=== PATIENT | male | born 1945 | race Caucasian/White ===

== ENCOUNTER 2016-09-28 20:25 | Emergency (ER) | payer BC ==
--- NOTE | 2016-09-28 21:30 | RAD ---
INDICATION: Intracranial injury. Anticoagulated. COMPARISON: None TECHNIQUE: Noncontrast axial source images were acquired from the skull base to the vertex. FINDINGS: Ventricles/sulci: There is mild age-related cortical atrophy with compensatory dilatation of the CSF spaces. Brain parenchyma: There is no focal parenchymal finding, evidence of intracranial mass, or intracranial mass effect. Intracranial hemorrhage:None. Extra-axial spaces: There are no abnormal extra axial fluid collections or evidence of extra-axial mass. Calvarium: There is no calvarial fracture or other calvarial abnormality. Scalp: There is no evidence of scalp or extracalvarial soft tissue abnormality. Paranasal sinuses/mastoid: The paranasal sinuses and mastoid air cells are clear. Other: None. IMPRESSION: MILD CORTICAL INVOLUTIONAL CHANGES, OTHERWISE NEGATIVE.
--- NOTE | 2016-09-28 21:42 | RAD ---
INDICATION: Fall. Facial injury. COMPARISON: None TECHNIQUE: Axial source images were acquired from the vertex of the mandible through the orbits. Coronal and sagittal reconstructed images were acquired. FINDINGS: Bones: There is no acute facial bone fracture. Orbits: The globes and intraconal structures appear intact. The optic nerves are symmetric. Extraocular muscles appear normal. There is no intraconal inflammatory change or retrobulbar mass.. Paranasal sinuses: There is mild narrowing ethmoid sinus mucosal thickening. There is minor mucosal thickening involving the maxillary antra. There are no air-fluid levels. The remaining paranasal sinuses are clear. Brain: There are no acute abnormalities of the visualized brain parenchyma. Soft tissues: There is mild supraorbital soft tissue swelling. Other: None The visualized soft tissue elements about the neck appear normal. IMPRESSION: NO ACUTE FACIAL BONE FRACTURE. MILD RIGHT SUPRAORBITAL SOFT TISSUE SWELLING
[2016-09-28] MEDS ORDERED: Lidocain 1% EPI 1:100,000 * 30 ML MDV INJ ONE (22:05)
--- NOTE | 2016-09-28 22:11 | ED ---
Adult Trauma - HPI Summary HPI Summary: 71M presents with fall on face. He states he tripped and landed on his face only. He is on plavix. He denies any LOC or nausea or vomiting. He has laceration to right side of face below right eye. He denies any change in vision or photophobia. His tetanus was within 5 years. He has mild headache. He has small abrasion to left wrist but has full ROM of wrist. He denies any other injury. He denies any lightheadedness. He denies any neck pain, chest pain or abdominal pain. He was able to ambulate into the ED. - History of Current Complaint Chief Complaint: EDFacialInjury Stated Complaint: FALL/HEAD AND JAW INJURY Time Seen by Provider: 09/28/16 20:43 Pain Intensity: 0 - Allergy/Home Medications Allergies/Adverse Reactions: Allergies Allergy/AdvReac Type Severity Reaction Status Date / Time No Known Allergies Allergy Verified 09/28/16 20:29 PMH/Surg Hx/FS Hx/Imm Hx Endocrine/Hematology History: Reports: Hx Anticoagulant Therapy Cardiovascular History: Reports: Hx Hypertension - Surgical History Surgery Procedure, Year, and Place: STENT 2006 Infectious Disease History: No Infectious Disease History: Denies: Traveled Outside the [place] in Last 30 Days - Family History Known Family History: Positive: Cardiac Disease - Social History Alcohol Use: Occasionally Substance Use Type: Reports: None Smoking Status (MU): Former Smoker Review of Systems Negative: Fever Negative: Chest Pain Negative: Shortness Of Breath Positive: Other - facial laceration Positive: Headache All Other Systems Reviewed And Are Negative: Yes Physical Exam Triage Information Reviewed: Yes Vital Signs On Initial Exam: Initial Vitals Temp Pulse Resp BP Pulse Ox 98 F 68 18 138/79 99 09/28/16 20:27 09/28/16 20:27 09/28/16 20:27 09/28/16 20:27 09/28/16 20:27 Vital Signs Reviewed: Yes Appearance: Positive: Well-Appearing Skin: Positive: Warm, Dry, Other - 5cm facial laceration under right eye, 2cm superficial laceration left wrist Head/Face: Positive: Normal Head/Face Inspection, Other - no step off, raccoon eyes, back sign Eyes: Positive: Normal, EOMI, EMMA, Conjunctiva Clear ENT: Positive: Normal ENT inspection, Pharynx normal, TMs normal Respiratory/Lung Sounds: Positive: Clear to Auscultation, Breath Sounds Present Cardiovascular: Positive: Normal, RRR Neurological: Positive: Sensory/Motor Intact, Alert, Oriented to Person Place, Time, CN Intact II-III - Bela Coma Scale Best Eye Response: 4 - Spontaneous Best Motor Response: 6 - Obeys Commands Best Verbal Response: 5 - Oriented Coma Scale Total: 15 Procedures - Laceration/Wound Repair 1 Location: head Description: Irregular Anesthesia: Local, 1.0%, Epi Length, Depth and Shape: 5cm by 1/4cm Irrigated w/ Saline (ccs): 200 Closure: Single Layer Suture Type: Prolene - 6-0 Number of Sutures: 6 2 Location: Other - left wrist Description: Linear Length, Depth and Shape: 2cm superficial Irrigated w/ Saline (ccs): 100 Closure: Skin Adhesive Diagnostics - Vital Signs Vital Signs Temp Pulse Resp BP Pulse Ox 09/28/16 20:44 98.6 F 70 16 128/68 96 09/28/16 20:43 67 98 09/28/16 20:42 128/68 09/28/16 20:27 98 F 68 18 138/79 99 - Laboratory Lab Statement: Any lab studies that have been ordered have been reviewed, and results considered in the medical decision making process. - CT head CT Interpretation: No Acute Changes CT Interpretation Completed By: Radiologist maxillaryfacial CT Interpretation: No Acute Changes CT Interpretation Completed By: Radiologist Adult Trauma Course/Dx - Course Course Of Treatment: 71M presents with fall on face. He states he tripped and landed on his face only. He is on plavix. He denies any LOC or nausea or vomiting. He has laceration to right side of face below right eye. He denies any change in vision or photophobia. His tetanus was within 5 years. He has mild headache. He has small abrasion to left wrist but has full ROM of wrist. He denies any other injury. He denies any lightheadedness. He denies any neck pain, chest pain or abdominal pain. He was able to ambulate into the ED. normal neuro exam. placed 6 sutures in lac near right eye, placed glue on other laceration on left wrist. normal CT head and maxillaryfacial. - Diagnoses Differential Diagnosis/HQI/PQRI: Positive: Abrasion(s), Contusion(s), Fracture, Laceration(s) Provider Diagnoses: Head injury, Facial laceration, Arm laceration Discharge - Discharge Plan Condition: Good Disposition: HOME Patient Education Materials: Care For Your Stitches (ED), Head Injury (ED) Referrals: Non Staff,Doctor [Primary Care Provider] - Additional Instructions: Keep area clean and dry for 48 hours Return to ED or primary for suture removal in [address] ice on area as needed Take Tylenol for headache every 6 hours Follow up with primary within 5 days Return to ED if develop vomiting, severe headache, change in behavior, or any new or worsening symptoms
[2016-09-28] MEDS ORDERED: Lidocaine 1.5% EPI 1:200,000* 30 ML SDV INJ ONE (23:00)
[2016-09-28 23:23] VITALS: BP 107/64
== END 2016-09-28 22:50 | disposition home or self-care (01) ==
LOC: ED 20:25
DX: S01.91XA Laceration without foreign body of unspecified part of head, initial encounter (principal); W19.XXXA Unspecified fall, initial encounter; Y93.9 Activity, unspecified; Y92.9 Unspecified place or not applicable; Y99.9 Unspecified external cause status
CPT/HCPCS: 12002; 70450; 70486; 99282